=== PATIENT | male | born 1970 | race Caucasian/White ===

== ENCOUNTER 2025-05-27 17:26 | Emergency (ER) | payer OTHER, BC ==
[~2025-05-27] VITALS: Ht 177.8 cm; Wt 147.1 kg
--- NOTE | 2025-05-27 19:50 | ELECTROCARDIOGRAPH REPORT ---
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
[2025-05-27 20:00] VITALS: TEMP 98.2
[2025-05-27] MEDS ORDERED: iohexol 300mg/ml 100ml inj. ONE (20:03)
[2025-05-27 20:31] LABS: MEAN PLATELET VOLUME 8.0 FL (7.4-10.4); RED CELL DISTRIBUTION WIDTH 14.0 % (11.5-14.5)
[2025-05-27 20:56] LABS: CREATININE 2.97 MG/DL (0.60-1.10); LACTATE DEHYDROGENASE 461 U/L (85-227); PHOSPHORUS 3.3 MG/DL (2.3-4.5); PRO BRAIN NATRIURETIC PEPTIDE 63 PG/ML (0-125); TOTAL CARBON DIOXIDE 24.5 MMOL/L (24-32); eCRCL 29 ML/MIN; eGFR 22 ML/MIN
[2025-05-27] MEDS: normal saline 1000ML IV soln IVB ONE (21:00)
--- NOTE | 2025-05-27 21:15 | RADIOLOGY REPORT ---
CLINICAL HISTORY: STARKEY TECHNIQUE: Helical imaging carried out from skull base to vertex without intravenous contrast. This e xam was performed according to our departmental dose optimization program. Up-to-date CT equipment an d radiation dose reduction techniques are utilized as appropriate. CTDIVol: 70.29+ 0.14 mGy DLP: 1395.78 mGy-cm WID: COMPARISON: None FINDINGS: The ventricles and subarachnoid spaces are normal in size and configuration. There is no midline niurka ft or mass effect. The castano white matter interfaces are maintained. The basal cisterns are patent. Th ere is no evidence of acute intracranial hemorrhage or extra-axial fluid collection. The mastoid air cells and visualized paranasal sinuses are well-aerated aside from mild mucosal thickening of the rig ht maxillary sinus. IMPRESSION: 1. No acute intracranial abnormality.
--- NOTE | 2025-05-27 21:44 | RADIOLOGY REPORT ---
Procedure: CT CT CHEST ABDOMEN PELVIS 05/27/2025 08:50 PM Indication: pain, diarrhea, weightloss Comparison Study: None Technique: Axial images were obtained and reformatted in coronal and sagittal planes. All CT scans at this medical facility are performed using dose modulation techniques as appropriate to a performed e xam including the following: Automated exposure control was utilized; adjustment of the MA and/or KV according to patient size; and use of iterative reconstruction technique. CT Dose: CTDI volume is 29. 91 mGy. Dose-length product is 2283.82 mGy*cm FINDINGS: Chest: The thyroid gland is unremarkable. Partially visualized heart is normal in size. Trace pericardial effusion. Lipomatous hypertrophy of the intra-atrial septum. No significant mediastinal lymphadenopathy. 6 mm Left basilar solid nodule follow-up per Fleischner criteria is recommended. No pneumothorax, ple ural effusion or focal airspace consolidation. Soft tissues are unremarkable. No evidence of acute osseous abnormalities. Abdomen and pelvis: Mild hepatomegaly with hepatic steatosis. 1.6 x 1.2 cm nonspecific enhancing focus within the right h epatic lobe with additional 3 x 6.8 cm area of ill-defined enhancement within the liver. Calcified gr anulomas within the spleen. Otherwise, the spleen is unremarkable. Gallbladder, pancreas and adrenal glands unremarkable. 3 cm right renal lower pole cyst with left renal parapelvic cyst /pelviectasis. Otherwise, kidneys an d ureters unremarkable. Urinary bladder is decompressed and demonstrates mild wall thickening. Prost ate measures 3.5 x 5 x 4.1 cm. Stomach is unremarkable. Small bowel loops fluid-filled and nondistended. Appendix is unremarkable. S mall amount of fecal material within the colon. Descending colon and sigmoid diverticulosis without d iverticulitis. No evidence of intraperitoneal free air or free fluid. No evidence of aortic aneurysm or dissection. Mild atherosclerotic calcification of bilateral iliacs. No significant lymphadenopathy. Small fat containing bilateral inguinal hernia. Small to moderate fat containing umbilical hernia. So ft tissues are evidence of acute osseous abnormalities. Multilevel okom-sk-omtnpzhp degenerative addison ges of the thoracic and lumbar spine. unremarkable. Bridging osteophytes bilateral SI joints with scl erosis of the left and right SI joint. Sclerotic focus over the left femoral head which may represent a bone island /blastic lesion. IMPRESSION: No evidence of acute intrathoracic abnormalities. Urinary bladder is decompressed and demonstrates mild wall thickening which is most likely from inade quate distension. Correlation with urinalysis is recommended to exclude cystitis. Colonic diverticulosis without diverticulitis. Fluid-filled nondistended Proximal small bowel loops which may be seen enteritis. 1.6 x 1.2 cm nonspecific enhancing focus within the right hepatic lobe with additional 3 x 6.8 cm are a of ill-defined enhancement within the liver. Hepatic protocol see CT/MRI may be considered for furt her evaluation. Left renal parapelvic cyst/mild pelviectasis. Renal ultrasound is recommended for further evaluation. 6 mm Left basilar solid nodule follow-up per Fleischner criteria is recommended.
[2025-05-27 22:26] LABS: LEUKOCYTE ESTERASE ,URINE NEGATIVE (Neg); NITRITES, URINE NEGATIVE (Neg); OCCULT BLOOD,URINE NEGATIVE (Neg)
[2025-05-27 22:29] LABS: UA COLLECTION TYPE CLN CATCH MIDSTREAM
[2025-05-27 22:34] LABS: SQUAMOUS EPITHELIAL CELL,UR FEW /LPF (FEW)
[2025-05-27 22:35] LABS: CAL OXALATE CRYSTALS 2+ /HPF (NEGATIVE)
[2025-05-27 22:53] LABS: URINE AMPHETAMINE SCREEN NEGATIVE (Neg); URINE BARBITUATE SCREEN NEGATIVE (Neg); URINE BENZODIAZEPINES SCREEN NEGATIVE (Neg); URINE CANNABINOID SCREEN NEGATIVE (Neg); URINE COCAINE SCREEN NEGATIVE (Neg); URINE METHADONE SCREEN NEGATIVE (Neg); URINE OPIATE SCREEN NEGATIVE (Neg); URINE PHENCYCLIDINE SCREEN NEGATIVE (Neg)
--- NOTE | 2025-05-27 23:28 | Physician Documentation ---
History of Present Illness General Chief Complaint: See Chief Complaint Stated Complaint: NOT FEELING WELL Time Seen by MD: 19:34 Primary Medical Doctor: Dr. Caruso Mode of Arrival: POV History of Present Illness Initial Comments This is a 54-year-old male who presents for evaluation of a generalized malaise, generalized weakness, shortness of breath, diarrhea, abdominal discomfort. Now he also reports approximately resident online which is why 40-60 lb loss in the last 10 days. No palliating or aggravating factors. Did not attempt to treat his symptoms. Tested himself for COVID three days ago and it was negative. Medication Reconciliation Allergies: Coded Allergies: No Known Allergies (Unverified , 05/27/25) Past Medical History Past Medical History: No Pertinent History Past Surgical History: no surgical history Smoking: Non-Smoker Alcohol Use: None Drug Use: none Review of Systems ROS 10 point review of systems was performed and unless noted above in HPI is negative for acute process/complaint. Physical Exam Physical Exam Vital Signs: Temperature: 98.2, Source: Temporal, Heart Rate: 102, Respiratory Rate: 17, BP: 118/71, Pulse Oximetry: 97, Weight: 147.100 Oxygen Flow Rate: 0 Physical Exam GENERAL: Awake, alert, oriented, GCS 15, no apparent distress, non-toxic appearing, answers questions, follows commands appropriately. Rotund gentleman with a high BMI. HEENT: Atraumatic, normocephalic, pupils equal, extraocular muscles intact, sclerae anicteric, mucus membranes moist, oropharynx is clear, no stridor. NECK: supple, full active range of motion, trachea midline, no thyromegaly, no lymphadenopathy, no JVD. CARDIOVASCULAR: Slightly tachycardic and regular rate/rhythm, no murmurs/gallops/rubs, Pulses are 2+ in all extremities and symmetric. Capillary refill less than 2 seconds. PULMONARY: Nonlabored, good air movement ,no respiratory distress, speaking in full sentences, coarse breath sounds bilaterally, no wheezing, no ronchi, no rales, no accessory muscle use. GASTROINTESTINAL: Soft, non-tender, non-distended, normal active bowel sounds, no organomegaly, no pulsatile masses, no CVA tenderness. NEUROLOGIC: Lucid with normal mental status. Normal facial symmetry. Moves all extremities symmetrically and with purpose. No truncal ataxia. Speech is fluid without evidence of dysarthria or aphasia, no focal deficits appreciated. MUSCULOSKELETAL: There is full range of motion of all extremities. There is no joint pain or joint swelling or joint erythema. There is no muscle pain or tenderness or swelling. EXTREMITIES: warm, well-perfused, no cyanosis, no clubbing, no edema, no acute deformities. Skin: warm, dry, no rashes or lesions, no jaundice, no petechiae orpurpura. No ecchymosis. PSYCHIATRIC: Normal affect, normal insight, normal concentration. Focused exam: [] Progress Results/Orders Results/Orders Orders - PHONG GODINEZ DO Monitor (05/27/25 19:35) Saline Lock (05/27/25 19:35) Ct Head (05/27/25 20:50) Ct Chest Abdomen Pelvis (05/27/25 20:50) Cult Urine + [address] Ct (05/27/25 22:35) Completed Orders - PHONG GODINEZ DO Drug Screen, Urine (05/27/25 19:35) Electrocardiogram (05/27/25 19:35) Cbc/Diff (05/27/25 19:35) CK (05/27/25 19:35) ESR (05/27/25 19:35) Lipase (05/27/25 19:35) LDH (05/27/25 19:35) C-Reactive Protein (05/27/25 19:35) PHOS (05/27/25 19:35) PBNP (05/27/25 19:35) MG (05/27/25 19:35) TSH (05/27/25 19:35) Free T4 (05/27/25 19:35) Normal Saline 1000ml (0.9% Sodium Chlori (05/27/25 19:35) Ct Head (05/27/25 20:50) CMP (05/27/25 19:35) Hs Troponin I W Calculations (05/27/25 19:35) Hs Troponin I W Calculations (05/27/25 21:35) Ct Chest Abdomen Pelvis (05/27/25 20:50) Iohexol 300mg/Ml 100ml Inj. (Omnipaque-3 (05/27/25 20:03) Ua W/Microscopic, Cult If Ind (05/27/25 22:07) Medications Received in ER Medications (Trade) Dose Ordered Sig/Lizeth Route PRN Reason Start Time Stop Time Status Last Admin Dose Admin (0.9% sodium chloride (NS) 1000ml IV soln) 1,000 ml ONCE ONCE IVB 05/27/25 19:35 05/27/25 19:43 DC 05/27/25 21:00 1,000 ML Vital Signs 05/27/25 05/27/25 05/27/25 05/27/25 17:44 20:00 20:08 21:00 Temp 97.7 98.2 Pulse 118 127 110 Resp 16 17 B/P (MAP) 104/60 102/67 (79) 106/64 (78) Pulse Ox 98 96 94 O2 Flow Rate 0 05/27/25 05/27/25 22:00 22:55 Pulse 106 102 B/P (MAP) 110/65 (80) 118/71 (87) Pulse Ox 96 97 Laboratory Tests Test 05/27/25 17:52 05/27/25 20:26 05/27/25 21:51 05/27/25 22:07 Glucometer 143 H White Blood Count 8.9 Red Blood Count 5.48 Hemoglobin 15.8 Hematocrit 45.7 Mean Corpuscular Volume 83.4 Mean Corpuscular Hemoglobin 28.7 Mean Corpuscular Hemoglobin Concent 34.5 Red Cell Distribution Width 14.0 Platelet Count 199 Mean Platelet Volume 8.0 Neutrophils (%) (Auto) 51.6 Lymphocytes (%) (Auto) 38.6 Monocytes (%) (Auto) 8.3 Eosinophils (%) (Auto) 0.2 Basophils (%) (Auto) 1.3 H Neutrophils # (Auto) 4.6 Lymphocytes # (Auto) 3.4 Monocytes # (Auto) 0.7 Eosinophils # (Auto) 0.0 Basophils # (Auto) 0.1 CBC Comment Erythrocyte Sedimentation Rate 25 H Sodium Level 132 L Potassium Level 4.0 Chloride Level 95 L Carbon Dioxide Level 24.5 Anion Gap 13 Blood Urea Nitrogen 45 H Creatinine 2.97 H Estimated GFR/1.73 m2 22 BUN/Creatinine Ratio 15.2 Glucose Level 159 H Calcium Level 9.0 Phosphorus Level 3.3 Magnesium Level 2.1 Total Bilirubin 1.2 H Aspartate Amino Transf (AST/SGOT) 68 H Alanine Aminotransferase (ALT/SGPT) 108 H Alkaline Phosphatase 67 Lactate Dehydrogenase 461 H Total Creatine Kinase 237 Troponin I High Sensitivity 7 6 C-Reactive Protein 4.74 H Pro-B-Type Natriuretic Peptide 63 Total Protein 8.3 H Albumin 3.9 Globulin 4.4 H Albumin/Globulin Ratio 0.9 L Lipase 101 H Thyroid Stimulating Hormone (TSH) 1.15 Free Thyroxine 1.07 Chemistry Comments Troponin I High Sens Percent Delta 14 Troponin I Hi Sens Absolute Change -1 Urine Specimen Description Cln catch midstream Urine Color Yellow Urine Clarity Clear Urine pH 5.5 Urine Specific [place] 1.010 Urine Protein 30 H Urine Glucose (UA) Negative Urine Ketones Negative Urine Occult Blood Negative Urine Nitrite Negative Urine Bilirubin Negative Urine Urobilinogen 0.2 Urine Leukocyte Esterase Negative Urine RBC 0-2 Urine WBC 5-10 H Urine Squamous Epithelial Cells Few Urine Calcium Oxalate Crystals 2+ Urine Bacteria 3+ Urine Culture Indicated Indicated Volume Urine Centrifuged 10 ml Urine Comment Urine Opiates Screen Negative Urine Methadone Screen Negative Urine Fentanyl Screen Negative Urine Barbiturates Screen Negative Urine Phencyclidine Screen Negative Urine Amphetamines Screen Negative Urine Benzodiazepines Screen Negative Urine Cocaine Screen Negative Urine Cannabinoids Screen Negative Drug Screen Comment EKG/XRAY/CT/US/VASC/MRI EKG : Additional Comment EKG was obtained and interpreted by myself shows sinus tachycardic, rate of 125, normal SC interval, wide QRS with a right bundle, no QT prolongation, normal axis, no STEMI. Medical Decision Making Findings Facility Status: ED Holds, [facility] process The plan was discussed with the patient, who demonstrates clear understanding of the plan and is in agreement with the plan unless otherwise noted in the chart. All questions have been answered, all concerns were addressed unless otherwise documented. I was available throughout their ED stay for frequent reassessment and questions. Differential Diagnoses (considered and possible or likely): [COVID, influenza, RSV, viral infection with the top of the viruses, viral gastroenteritis, less likely acute intra-abdominal process requiring surgical intervention. Given his nearly catastrophic weight loss of 40-60 lb and 10 days there is definite concern for cancer. Given his complaint of highly sensitive nipples without I am concerned about a pituitary disease. Intracranial neoplasm had also been considered.] ??Differential Diagnoses (considered and unlikely, not requiring evaluation currently): [No evidence of lateralizing signs to suspect a stroke. No evidence of trauma.] MDM Data Please see HPI for the following: Independent Historians and external Records Review. Historian: [Patient] Independent Historians: ?[ and daughter] Medication Management: [Reviewed medication list] Social History and determinants: [Reviewed] Please see the body of the note for the following: Any independent interpretations of ECG, imaging studies. All vitals signs/haemodynamics, ordered tests were independently reviewed and interpreted by myself. Nursing triage complaint and vitals reviewed, additional nursing notes were reviewed as available and I agree unless otherwise noted or documented in contradiction in the chart Vital Signs: Independently reviewed Labs: Independently interpreted Imaging: Independently interpreted Old Medical Records: Independently reviewed, see HPI for relevant summary and information Pulse Oximetry: [97%] interpreted as [normal on room air] by me [Filling Hauler: Tachycardic Rate, Regular rhythm, no ectopy, sinus tachycardia. reviewed and interpreted by me] Additionally notably showing: [Hemodynamics reviewed. He is tachycardic, improved with fluids. No evidence of hypotension respiratory distress. CBC normal ESR is elevated minimally at 25 . Chemistry is positive for new onset acute kidney injury with a creatinine of 2.97. Transaminitis and viral pattern noted. LDH is slightly elevated. CRP is elevated. Lipase is also elevated. Thyroid studies are normal. Initial and repeat troponins are negative. Toxicology is negative for drugs of abuse. UA is questionably positive for UTI. Head CT was obtained showing no acute intracranial abnormality. CT of the chest, abdomen and pelvis showed 6 mm left lung base nodule. It that will require follow-up. He has nonspecific enhancing foci in the liver. Renal cyst noted. No acute intra-abdominal process.] Tests considered but not ordered include: [Ultrasound of the liver versus MRI of the liver to define the areas of hyper enhancement can be done on the inpatient basis.] Social Determinants of Health Impact: Patient was evaluated in [facility] [place] to healthcare due to below par ratio of patient to medical providers. [] Comorbid Conditions Impacting Present Evaluation and Care/Treatment: [None reported with the patient, he does not see doctors.] Management Discussions with other Healthcare Providers: [Hospitalist regarding admission] Treatment and Disposition Medication Management (Given or considered): [Fluids]. See EMR for details Consideration for Hospitalization/Escalation/Deescalation of Care: Admission for observation has been considered, for further workup of his new onset acute kidney injury. ?ED Course:?[No clinical deterioration] ?Shared decision making:?[] Code status:?FULL Please see the full Electronic Medical Record for full details of nursing documentation, medications list, other records of complete past medical history and conditions, vital signs, laboratory studies, and any radiologic study interpretations by radiologists. Portions of this note were completed using [employer] dictation software and as a result there may exist minor errors in spelling. I have reviewed elements of past family and social history and agree as included in note. Departure Disposition: 09 ADMITTED INPATIENT Impression: Primary Impression: Acute kidney injury Additional Impressions: Malaise Liver lesion Inappropriate sinus tachycardia Right bundle branch block Condition: Improved Referrals: NO PRIMARY CARE PROVIDER (PCP) Education Educated: Patient, Family Educated regarding: diagnosis, treatment, prognosis, need for follow up Signature Scribe Signature: No scribe Attestation: This note accurately reflects clinical decisions, work performed by myself, DO GRETCHEN Bowers NICHOLAS M DO May 27, 2025 23:28
[2025-05-27] MEDS ORDERED: AMOX-117 PO (23:45)
[2025-05-27] MEDS: CefTRIAXone/D5W-Rocephin 1gm 50 ML IV ONE (23:51)
[2025-05-28 00:07] VITALS: BP 147/97; PULSE 103; RESP 17; O2SAT 99
[2025-05-29] MEDS ORDERED: OLME-31 PO (15:16)
[2025-05-29] MEDS ORDERED: TIRZ5PEN (15:16)
[2025-05-29] MEDS ORDERED: METF-1203 PO (15:16)
== END 2025-05-28 00:18 | disposition home or self-care (01) ==
LOC: ER 17:27
DX: N17.9 Acute kidney failure, unspecified (principal); R51.9 Headache, unspecified; R53.81 Other malaise; K76.9 Liver disease, unspecified; I47.11 Inappropriate sinus tachycardia, so stated; I45.10 Unspecified right bundle-branch block; N39.0 Urinary tract infection, site not specified
CPT/HCPCS: 36415; 70450; 71270; 74178; 80053; 80305; 81001; 82550; 82948; 83615; 83690; 83735; 83880; 84100; 84439; 84443; 84484; 85025; 85651; 86140; 87088; 93005; 96361; 96365; 99285; J0696; J7030; Q9967

== ENCOUNTER 2025-05-29 10:15 | Inpatient (IN) | payer OTHER, BC ==
[~2025-05-29] VITALS: Ht 180.3 cm; Wt 160.8 kg
[~2025-05-29 10:15] MED LIST: AMOX-117 PO
--- NOTE | 2025-05-29 10:45 | ELECTROCARDIOGRAPH REPORT ---
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
--- NOTE | 2025-05-29 10:57 | RADIOLOGY REPORT ---
DI CHEST,SINGLE VIEW, HISTORY: CP COMPARISON: CT CT CHEST ABDOMEN PELVIS on DOS: 05/27/[address] CHEST ABDOMEN PELVIS on DOS: 05/27/25 TECHNICAL DATA: 1 view of the chest was obtained. FINDINGS: Lines and tubes: None Cardiomediastinal silhouette: normal Pulmonary vasculature: normal Lung expansion: normal Lung airspace: normal Lung interstitium: normal Pleura: normal Pneumothorax: no Bones: Unremarkable Other: no IMPRESSION: No acute intrathoracic abnormality.
[2025-05-29 11:01] LABS: MEAN PLATELET VOLUME 7.9 FL (7.4-10.4)
[2025-05-29 11:03] LABS: RED CELL DISTRIBUTION WIDTH 14.6 % (11.5-14.5)
[2025-05-29 11:17] LABS: CREATININE 3.85 MG/DL (0.60-1.10); TOTAL CARBON DIOXIDE 20.6 MMOL/L (24-32); eCRCL 23 ML/MIN; eGFR 16 ML/MIN
[2025-05-29 11:29] LABS: PRO BRAIN NATRIURETIC PEPTIDE 180 PG/ML (0-125)
[2025-05-29 13:06] LABS: EOSINOPHILS % (MANUAL) 2.0 % (0-6); MONOCYTES % (MANUAL) 17.0 % (2-12); NEUTROPHILS % (MANUAL) 23.0 % (42-75)
[2025-05-29 13:08] LABS: PLATELET ESTIMATE NORMAL
[2025-05-29 13:09] LABS: LYMPHOCYTES % (MANUAL) 58.0 % (21-51)
--- NOTE | 2025-05-29 13:37 | Physician Documentation ---
History of Present Illness General Chief Complaint: Abdominal Pain Stated Complaint: MULTIPLE MED COMPLAINTS Time Seen by MD: 13:15 Primary Medical Doctor: Dr. Caruso Mode of Arrival: POV History of Present Illness Initial Comments The patient is a 54-year-old male with a history of type 2 diabetes and hypertension who has been feeling generally unwell for the past 10 days. He was here two days ago at which time his creatinine was 2.97. He eloped from the department. Today he returns with similar symptoms and his creatinine is 3.85. He denies the use of illicit drugs and alcohol. Medication Reconciliation Allergies: Coded Allergies: No Known Allergies (Unverified , 05/29/25) Scheduled Amox Tr/Potassium Clavulanate (Augmentin 875-125 Tablet), 1 TAB PO Q12H Past Medical History Past Medical History: No Pertinent History Past Surgical History: no surgical history Smoking: Non-Smoker Alcohol Use: None Drug Use: none Review of Systems ROS Constitutional: Malaise HEENT: Denies hearing loss, sinus pressure or visual changes. Respiratory: Denies cough, shortness of breath or wheezing. Cardiovascular: Denies chest pain, pain while walking (claudication), edema or palpitations. Gastrointestinal: Denies abdominal pain, blood in stool, constipation, diarrhea, heartburn, loss of appetite, nausea or vomiting. Genitourinary: Denies painful urination (dysuria), excessive amount of urine (polyuria) or urinary frequency. Metabolic/Endocrine: Denies cold intolerance, heat intolerance, excessive thir st (polydipsia) or excessive hunger (polyphagia). Neurological: Denies dizziness, extremity numbness, extremity weakness, hea daches, seizures or tremors. Psychiatric: Denies anxiety or depression. Integumentary: Denies breast discharge, breast lump, hives, mole change(s), rash or skin lesion. Musculoskeletal: Denies back pain, joint pain, joint swelling or neck pain. Hematologic: Denies easily bleeding, easily bruises, lymphedema or issues with blood clots. Immunologic: Denies food allergies or seasonal allergies. Physical Exam Physical Exam Vital Signs: Temperature: 97.9, Source: Temporal, Heart Rate: 102, Respiratory Rate: 16, BP: 116/67, Pulse Oximetry: 97, Weight: 147.730 Physical Exam Physical Exam Vitals and nursing note reviewed. Constitutional: General: Patient is awake, alert, oriented x 4 in no acute distress and well appearing. Speech is clear and lucid. Appearance: Morbidly obese. Patient is not ill-appearing, toxic-appearing or diaphoretic. HENT: Head: Normocephalic and atraumatic. Mouth/Throat: Mouth: Mucous membranes are moist. Pharynx: Oropharynx is clear. Eyes: General: No scleral icterus. Extraocular Movements: Extraocular movements intact. Pupils: Pupils are equal, round, and reactive to light. Neck: Supple, no Kernig or Brudzinski sign. Cardiovascular: Rate and Rhythm: Normal rate and regular rhythm. Heart sounds: No murmur heard. Pulmonary: Effort: No respiratory distress. Breath sounds: No wheezing, rhonchi or rales. Abdominal: General: There is no distension. Palpations: There is no fluid wave, hepatomegaly or mass. Tenderness: There is no abdominal tenderness. There is no guarding. Musculoskeletal: General: No swelling or deformity. Skin: Coloration: Skin is not jaundiced. Findings: No erythema or rash. Neurological: Mental Status: Patient is alert. Progress Results/Orders Results/Orders Orders - ERIC KELLEY MD Normal Saline 1000ml (0.9% Sodium Chlori (05/29/25 13:35) Normal Saline 1000ml (0.9% Sodium Chlori (05/29/25 13:35) Culture Blood (05/29/25 13:32) Lacticsepsis (05/29/25 13:32) Ethanol (05/29/25 13:36) Drug Screen, Urine (05/29/25 13:36) Page Hospitalist (05/29/25 13:53) Completed Orders - ERIC KELLEY MD Ceftriaxone 2gm/D5w 50ml Bag (Rocephin 2 (05/29/25 13:35) Vital Signs 05/29/25 05/29/25 10:26 11:50 Temp 97.9 Pulse 102 Resp 18 16 B/P (MAP) 116/67 Pulse Ox 97 Laboratory Tests Test 05/29/25 10:39 05/29/25 12:20 05/29/25 13:53 White Blood Count 9.1 Red Blood Count 4.84 Hemoglobin 13.9 L Hematocrit 40.4 L Mean Corpuscular Volume 83.5 Mean Corpuscular Hemoglobin 28.7 Mean Corpuscular Hemoglobin Concent 34.4 Red Cell Distribution Width 14.6 H Platelet Count 188 Mean Platelet Volume 7.9 Neutrophils (%) (Auto) 27.0 L Lymphocytes (%) (Auto) 64.1 H Monocytes (%) (Auto) 7.4 Eosinophils (%) (Auto) 0.5 Basophils (%) (Auto) 1.0 Neutrophils # (Auto) 2.5 Lymphocytes # (Auto) 5.9 H Monocytes # (Auto) 0.7 Eosinophils # (Auto) 0.0 Basophils # (Auto) 0.1 CBC Comment Differential Total Cells Counted 100 Neutrophils % (Manual) 23.0 L Lymphocytes % (Manual) 58.0 H Monocytes % (Manual) 17.0 H Eosinophils % (Manual) 2.0 Platelet Estimate Normal Red Blood Cell Morphology Perf Basophilic Stippling Stomatocytes Few Sodium Level 130 L Potassium Level 3.9 Chloride Level 96 L Carbon Dioxide Level 20.6 L Anion Gap 13 Blood Urea Nitrogen 48 H Creatinine 3.85 H Estimated GFR/1.73 m2 16 BUN/Creatinine Ratio 12.5 Glucose Level 106 H Calcium Level 8.3 L Total Bilirubin 1.0 Aspartate Amino Transf (AST/SGOT) 59 H Alanine Aminotransferase (ALT/SGPT) 87 H Alkaline Phosphatase 53 Troponin I High Sensitivity 8 7 Troponin I High Sens Percent Delta 33 12 Troponin I Hi Sens Absolute Change 2 -1 Pro-B-Type Natriuretic Peptide 180 H Total Protein 7.1 Albumin 3.3 L Globulin 3.8 Albumin/Globulin Ratio 0.9 L Chemistry Comments Medical Decision Making Findings This patient's creatinine today is 3.85 and it was 2.972 days ago. He has no prior documented history of renal problems. He also has a urinary tract infection. He will require admission EKG medically necessary in the evaluation of ISAAC and interpreted by me at the time of patient evaluation. Rhythm is sinus rhythm with a rate of 96, right bundle branch block. Impression: Abnormal EKG. ECG reading does not show any acute signs of obvious ischemia. No evidence of A- V block. No short OK, delta waves, or wide QRS concerning for [id number]. No long QT events on my read. I do not see evidence of Brugada with ST elevations in V1 through V3. No epsilon wave noted. No low voltage suggestive of pericardial effusion. No right ventricular strain pattern. Departure Disposition: ADMITTED INPATIENT Admitted to Inpatient Unit: to hospitalist Impression: Primary Impression: Acute kidney injury Additional Impression: Acute urinary tract infection Condition: Fair Referrals: NO PRIMARY CARE PROVIDER (PCP) Signature Scribe Signature: . Attestation: . ERIC KELLEY MD May 29, 2025 13:37
[2025-05-29] MEDS: normal saline 1000ml 1,000 ML IV ONE ×2 (14:16→14:17)
[2025-05-29] MEDS: CefTRIAXone 2gm/D5W 50ml BAG 50 ML IV ONE (14:20)
[2025-05-29] MEDS ORDERED: METF-1203 PO (15:16)
[2025-05-29] MEDS ORDERED: TIRZ5PEN (15:16)
[2025-05-29] MEDS ORDERED: OLME-31 PO (15:16)
[2025-05-29 16:05] VITALS: RESP 18; O2SAT 100
[2025-05-29 16:14] LABS: URINE AMPHETAMINE SCREEN NEGATIVE (Neg); URINE BARBITUATE SCREEN NEGATIVE (Neg); URINE BENZODIAZEPINES SCREEN NEGATIVE (Neg); URINE CANNABINOID SCREEN NEGATIVE (Neg); URINE COCAINE SCREEN NEGATIVE (Neg); URINE METHADONE SCREEN NEGATIVE (Neg); URINE OPIATE SCREEN NEGATIVE (Neg); URINE PHENCYCLIDINE SCREEN NEGATIVE (Neg)
[2025-05-29] MEDS ORDERED: magnesium hydroxide 30ml (MOM) UD suspension PO PRN (16:15)
[2025-05-29] MEDS ORDERED: mag hydrox/Alum hydrox/simeth 30ml oral suspension PO PRN (16:15)
[2025-05-29] MEDS: PERFLUTREN PROTEIN-A MICROSPHR (Optison) 0.22 MG/ML 3ML VIAL IV ONE (16:15)
[2025-05-29] MEDS ORDERED: magnesium sulf-water 4G/100mL 100 ML IV PRN (16:15)
[2025-05-29] MEDS ORDERED: potassium Cl 40MEQ/1/2NS 520ml 520 ML IV PRN (16:15)
[2025-05-29] MEDS ORDERED: magnesium sulf-water 2g/50mL 50 ML IV PRN (16:15)
[2025-05-29] MEDS ORDERED: potassium Cl 20 mEq SR tablet PO PRN ×2 (16:15)
[2025-05-29] MEDS ORDERED: ondansetron/PF 4mg/2ml inj IV PRN (16:15)
[2025-05-29] MEDS ORDERED: magnesium Cl slow-release 64mg tablet PO PRN (16:15)
[2025-05-29 16:16] VITALS: BP 114/76; PULSE 86; RESP 16; TEMP 97.5; O2SAT 100
[2025-05-29] MEDS: normal saline 1000ml 1,000 ML IV SCH (16:32)
[2025-05-29 18:00] VITALS: BP 104/58; PULSE 85; RESP 15; TEMP 97.2; O2SAT 95
--- NOTE | 2025-05-29 19:02 | HISTORY AND PHYSICAL-Residence ---
History & Physical Providers to Resident Creating Document: WILD PEARCE, BOOKER ~ History of Present Illness Primary Medical Doctor: Dr. Caruso Reason for Admit\Complaint: Weakness History of Present Illness A 54 year-old male with a past medical history of type 2 diabetes mellitus, hypertension, and colitis presented to the ED with complaints of nausea, vomiting, diarrhea, profound fatigue, dizziness and weight loss. He reports the onset of nausea, vomiting, and watery diarrhea approximately 10 days prior to admission after he returned back from his trip to [place] where he stayed at [facility]. The vomiting lasted about three days, consisting of food contents only, without hematemesis or coffee-ground material. He denies hematochezia, melena, or foul-smelling stools. The diarrhea has been watery in consistency, with no associated blood. He also describes progressive fatigue, excessive sleepiness, dizziness, and unintentional weight loss of nearly 40 pounds over the past two weeks. On 05/19, he initially presented to the emergency department with similar complaints. Labs at that time revealed elevated AST/ALT and an elevated creatinine of 2.93. A CT abdomen was performed, which showed a 1.6 x 1.2 cm nonspecific enhancing focus within the right hepatic lobe with additional 3 x 6.8 cm area of ill-defined enhancement within the liver. Despite these abnormalities, the patient left against medical advice due to work obligations. Since then, his symptoms persisted, with ongoing diarrhea and poor oral intake. He reports that he has not been able to eat since 05/19, with minimal tolerance of fluids. Last night, he noticed transient numbness and tingling of his right foot while driving, as well as paresthesia of his right hand. He denies abdominal pain but notes intermittent abdominal pressure and discomfort. He also endorses episodes of diaphoresis and hot flashes. He has no chest pain, palpitations, cough, shortness of breath, or dysuria. 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 His medications include metformin, olmesartan, and hydrochlorothiazide. He was diagnosed with diabetes and hypertension approximately three years ago, with recent medication titration in January. He denies recent alcohol or illicit drug use. Allergies: Coded Allergies: No Known Allergies (Unverified , 05/29/25) Home Medications Home Medications Active Augmentin 875-125 Tablet (Amoxicillin/Clavulanate Potassium) 1 Each Tablet 1 Tab PO Q12H 10 Days Reported Olmesartan-Hctz 40-25 mg Tab (Olmesartan/Hydrochlorothiazide) 40 Mg-25 Mg Tablet 1 Tab PO DAILY Mounjaro (Tirzepatide) 5 Mg/0.5 Ml Pen.injctr Metformin HCl 500 Mg Tablet 2 Tab PO BID Past Medical History Past Medical History Hypotension Diabetes mellitus Obesity Past Surgical History Surgical History Comment None Past Social History Social History Comment Smoking: Chews tobacco Denied alcohol illicit use of drugs Lives with and daughter Ambulates independently Smoking: Non-Smoker Alcohol Use: None Drug Use: None ROS ROS Constitutional: No fever, chills, dizziness, weight gain or loss Eyes: No pain, erythema, discharge, blurring of vision ENT: No sore throat, epistaxis, tinnitus Cardiovascular: No Shortness of breath. Chest pressure, chest discomfort, palpitations, syncope, lower extremity edema, paroxysmal nocturnal dyspnea Respiratory: Shortness of breath and cough present, No hemoptysis Gastrointestinal: Normal appetite. Reports nausea, vomiting, diarrhea; no constipation, hematemesis, abdominal pain, bloating, melena or fresh blood Musculoskeletal: No edema. Integumentary: No change in skin, hair, nails. No swelling, bruising, abrasions Neurologic: No headache, neck pain, numbness or tingling of the extremities, weakness Psychiatric: No delusions, depression, loss of interest in normal activity or change in sleep pattern, hallucinations, suicidal ideations Endocrine: No fatigue, weakness, polydipsia, polyuria, change in appetite, heat or cold intolerance, sweating, dry skin Hematological: No bleeding, petechiae, bruising Allergies: No asthma or urticaria Exam Vitals: Vital Signs Date Time Temp Pulse Resp B/P (MAP) Pulse Ox O2 Delivery O2 Flow Rate FiO2 05/29/25 16:16 97.5 86 16 114/76 (89) 100 Room Air General: Awake , alert, and oriented x4, resting comfortably in the bed, in no acute distress HEENT: Atraumatic, normocephalic, EOMI, anicteric sclera ; pink conjunctiva Neck: Trachea midline. Supple, full range of motion, no JVD Cardiac: Regular rhythm, regular rate with no murmurs all over the precordium. Respiratory: Equal breath sounds bilaterally, no tachypnea, no wheezing ,rub or rales, Chest wall is symmetric and without deformity. Gastrointestinal: Abdomen symmetric, obese, soft, non-tender, normal bowel sounds x4 quadrant, normoactive Musculoskeletal: No pedal edema, no cyanosis Neurological: Speech is clear, alert, and oriented x 4. No motor or sensory deficit, deep tendon reflexes normal, cerebellar intact. Cranial nerves II-XII intact. Skin: Warm and dry Diagnostic Data Last Recorded Lab Results: 05/29/25 1039 05/29/25 1039 Advance Care Planning Advanced Care plannin - 30 Minutes Additional Plan 1. Nausea, Vomiting, and Watery Diarrhea (10 days) with Severe Weight Loss (40 lbs/2 weeks) Likely multifactorial: infectious gastroenteritis vs colitis flare vs metabolic disturbance (renal/hepatic dysfunction) Dehydration evident with poor oral intake, fatigue, dizziness. Plan: Stool studies: C. diff, stool leukocytes, stool O&P Blood cultures ordered IV fluid resuscitation with electrolyte monitoring NS at 100 cc/hour Antiemetics (ondansetron) Clear liquid diet, advance as tolerated 2. Acute Kidney Injury (Cr 2.93 on 05/19, presumed prerenal from dehydration vs progression of CKD from HTN/DM) On olmesartan and hydrochlorothiazide (both can worsen renal function in hypovolemia) Plan: Creatinine today: 3.85, continue monitoring CMP Hold nephrotoxic meds (metformin, HCTZ, olmesartan) Urine lytes ordered: Urine sodium, urine creatinine, urine osmolality, serum osmolality, urine Urea, , urine potassium Trend renal function and electrolytes q12h IV fluids with close sodium monitoring Ordered renal ultrasound 3. Transaminitis with Possible enhancing focus in the right hepatic lobe History of alcohol not reported, but concern for underlying hepatic disease. Plan: AST and ALT have trended down from the previous admission to [address] abdomen/pelvis 1.6 x 1.2 cm nonspecific enhancing focus within the right hepatic lobe with additional 3 x 6.8 cm area of ill-defined enhancement within the liver. Hepatitis viral panel ordered Patient will benefit with Abdominal ultrasound with liver Doppler MRI liver for further characterization of lesion outpatient Avoid hepatotoxic medications. 4. Unintentional Weight Loss & Constitutional Symptoms (40 lbs/2 weeks, diaphoresis, hot flashes) Red flag for malignancy, systemic infection, or metabolic/endocrine disorder Plan: Chest CT abdomen showed: Colonic diverticulosis without diverticulitis. Fluid- filled nondistended Proximal small bowel loops which may be seen enteritis.1.6 x 1.2 cm nonspecific enhancing focus within the right hepatic lobe with additional 3 x 6.8 cm area of ill-defined enhancement within the liver. Hepatic protocol see CT/MRI may be considered for further evaluation.Left renal parapelvic cyst/mild pelviectasis. Renal ultrasound is recommended for further evaluation.6 mm Left basilar solid nodule follow-up per Fleischner criteria is recommended. Ordered alpha-fetoprotein 5.Paresthesias (right foot, right hand) Electrolytes: Sodium 130, potassium 3.[address] head to rule out CVA given vascular risk factors (HTN, DM) Plan: Magnesium phosphorus ordered Calcium levels 8.3, corrected calcium 7.9 B12, folate, TSH ordered Neuro checks; consider MRI brain if focal deficits persist 6. Hyponatremia (possible hypotonic hypovolemic hyponatremia) Sodium levels 130 today Probably secondary to vomiting and diarrheal episodes in the past 10 days Also could be secondary to nutritional deficiencies, as patient had poor oral intake over the last few days Plan Continue NS at 100 cc/hour Ordered urine sodium, urine osmolality and serum osmolality Continue monitoring sodium levels with BMP daily 7. Chronic Conditions Diabetes Mellitus: Hold metformin until renal function stabilizes; monitor glucose with insulin sliding scale. Hypertension: Hold olmesartan and HCTZ until ISAAC improves; ordered amlodipine 5 mg p.o. daily Morbid Obesity: BMI 45.4: Patient will benefit from gastric surgery, outpatient management DVT prophylaxis with SQ heparin. GI prophylaxis Protonix Code Status: Full code Carb controlled diet, please transition to clear liquid diet with patient is unable to tolerate Wild Pearce MD Internal Medicine Resident, PGY-2 Date of Service: May 29, 2025 Billing Provider: VICTORINA CISNEROS MD Common Visit Codes: 32943-SXTSITS INP/OBS CARE (HIGH) Secondary Visit Codes: 96247-FKHVJRKT CARE PLAN 30 MINUTES WILD PEARCE, BOOKER May 29, 2025 19:02 VICTORINA CISNEROS MD May 31, 2025 06:14
--- NOTE | 2025-05-29 19:07 | CARDIOLOGY REPORT ---
APPROVED REPORT EXAM: Comprehensive 2D, Doppler, and color-flow Echocardiogram. Patient Location: 353 A Blood Pressure: 114/76 mmHg Heart Rate: 81 bpm Rhythm: SINUS Indications SHORTNESS OF BREATH ELEVATED PROBNP (180) Closer On: none Previous echo: none 2D Dimensions RVDd 4.9 cm IVSd 1.0 (0.7-1.1cm) LVDd 5.2 cm PWd 1.2 (0.7-1.1cm) IVSs 1.2 (0.8-1.2cm) LVDs 3.3 (2.5-4.0cm) PWs 1.7 (0.8-1.2cm) LVOT Diameter 2.16 (1.8-2.4cm) LVEF(%) 65.3 (>50%) FS (%) 36.1 % SV 83.9 ml CO 7.0 L/min M-Mode Dimensions Left Atrium(MM) 5.03 (2.5-4.0cm) Aortic Root 3.34 (2.2-3.7cm) Aortic Cusp Exc 1.78 (1.5-2.0cm) MV EPSS 0.9 (<0.5cm) Aortic Valve AoV Peak Markell. 133.8 cm/s AoV VTI 20.9 cm AO Peak GR. 7.2 mmHg AO Mean GR. 4 mmHg LVOT VTI 17.09 cm LVOT Peak Markell. 93.3 cm/s АНДРЕЙ(VTI)/BSA 3.00 cm2/m2 АНДРЕЙ (VTI) 3.00 cm2 Mitral Valve MV E Velocity 69.4 cm/s MV Peak Gr. 3 mmHg MV DECEL TIME 248 ms MV A Velocity 80.1 cm/s MV PHT 68 ms E/A Ratio 0.9 MVA (PHT) 3.24 cm2 MV VMax85.6 cm/s TDI Medial E' P. V 8.79 cm/s E/Medial E' 7.9 Pulmonary Vein S1 Velocity 38.7 cm/s D2 Velocity 31.6 cm/s PVa Bwwjidfv19.7 cm/s PVa [id number] msec LEFT VENTRICLE Normal LV size and wall thickness. Overall systolic function is normal. LVEF is 60-65%. RIGHT VENTRICLE RV is moderately dilated with normal systolic function. ATRIA LA size is normal. AORTIC VALVE Trileaflet AV appears mildly sclerotic without stenosis or insufficiency. MITRAL VALVE Mild MV annular calcification without stenosis. Trace regurgitation. TRICUSPID VALVE TV appears structurally normal with trace regurgitation. PULMONIC VALVE Normal PV without stenosis, physiologic insufficiency. GREAT VESSELS The aortic root is normal in size. PERICARDIUM Normal pericardium. No effusion. Other Information Study Quality: Adequate Conclusion Normal LV size and wall thickness. Overall systolic function is normal. LVEF is 60-65%. RV is moderately dilated with normal systolic function. LA size is normal. Trileaflet AV appears mildly sclerotic without stenosis or insufficiency. Mild MV annular calcification without stenosis. Trace regurgitation. TV appears structurally normal with trace regurgitation. Normal pericardium. No effusion.
[2025-05-29 20:00] VITALS: BP_SYST 119; BP_SYST 126; BP_SYST 129; BP_DIAS 67; BP_DIAS 72; BP_DIAS 74; PULSE 109; PULSE 89; PULSE 95; RESP 18; O2SAT 100
[2025-05-29] MEDS: docusate sod 100mg capsule PO SCH (20:00)
[2025-05-29] MEDS: K and/or MAG REPLACEMENT MC SCH (20:00)
[2025-05-29 20:13] LABS: OSMOLALITY 290.0 MOSM/K (280-300)
--- NOTE | 2025-05-29 20:26 | RADIOLOGY REPORT ---
CLINICAL HISTORY: To rule out CVA TECHNIQUE: Helical scanning was performed of the head from the skull base to the vertex. Multiplanar reconstructions were performed. This exam was performed according to our departmental dose optimizat ion program. Up-to-date CT equipment and radiation dose reduction techniques are utilized as appropri ate. CTDI 76.8 DLP 1598 COMPARISON: CT CT HEAD on DOS: 05/27/25 FINDINGS: There is no evidence for acute intracranial hemorrhage, acute ischemic changes, mass, mass effect, or extra-axial fluid collection. There is no hydrocephalus or midline shift. There is no effacement of the cerebral sulci and basal subarachnoid cisterns. The castano-white matter differentiation is well nicole ntained. The imaged paranasal sinuses are demonstrate minimal scattered mucoperiosteal thickening. IMPRESSION: NO ACUTE INTRACRANIAL ABNORMALITY SEEN.
[2025-05-29] MEDS: heparin, porcine 5000 units/ml vial SQ SCH (20:49)
[2025-05-29 21:52] LABS: OCCULT BLOOD STOOL NEGATIVE (Neg)
[2025-05-29 22:00] VITALS: BP 98/64; PULSE 82; RESP 14; TEMP 99.4; O2SAT 94
[2025-05-29 23:00] VITALS: BP 98/64; PULSE 82; RESP 14; TEMP 99.4; O2SAT 94
[2025-05-30] VITALS (11 sets, daily range): BP systolic 89–145; BP diastolic 61–79; PULSE 54–111; RESP 14–17; TEMP 97–99.4; O2SAT 94–99
[2025-05-30 04:15] LABS: MEAN PLATELET VOLUME 7.8 FL (7.4-10.4); RED CELL DISTRIBUTION WIDTH 14.3 % (11.5-14.5)
[2025-05-30 04:28] LABS: CHOL/HDL RATIO 5.5 (0.00-4.99); CREATININE 2.29 MG/DL (0.60-1.10); LDL CHOLESTEROL 45 MG/DL (50-100); TOTAL CARBON DIOXIDE 20.2 MMOL/L (24-32); eCRCL 39 ML/MIN; eGFR 30 ML/MIN
[2025-05-30 05:10] LABS: EOSINOPHILS % (MANUAL) 1.0 % (0-6); MONOCYTES % (MANUAL) 8.0 % (2-12)
[2025-05-30 05:11] LABS: NEUTROPHILS % (MANUAL) 50 % (42-75)
[2025-05-30 05:12] LABS: LYMPHOCYTES % (MANUAL) 30 % (21-51); REACTIVE LYMPHOCYTES % 11 % (0-0)
[2025-05-30 05:13] LABS: PLATELET ESTIMATE NORMAL
[2025-05-30 06:02] LABS: LEUKOCYTE ESTERASE ,URINE NEGATIVE (Neg); NITRITES, URINE NEGATIVE (Neg); OCCULT BLOOD,URINE NEGATIVE (Neg)
[2025-05-30 06:03] LABS: UA COLLECTION TYPE VOIDED
[2025-05-30 07:21] LABS: CREATININE,URINE RANDOM 87.0 MG/DL; UA EOSINOPHILS NO EOS /HPF; UA UREA RANDOM 495.0 MG/DL
[2025-05-30 07:26] LABS: OSMOLALITY UA 346.0 MOSM/K (50-1400)
[2025-05-30] MEDS: normal saline 1000ml 1,000 ML IV ONE (09:10)
[2025-05-30 09:19] LABS: C DIFF ANTIGEN NEGATIVE (NEGATIVE); C DIFF SPECIMEN=DIARRHEA? ACCEPTABLE; C DIFFICILE TOXINS A&B NEGATIVE (Neg)
--- NOTE | 2025-05-30 14:01 | RADIOLOGY REPORT ---
INDICATION: Acute increase in creatinine TECHNIQUE: Multiple real-time sonographic images of the kidneys and bladder were obtained. COMPARISON: None FINDINGS: The right kidney measures 12 cm in length, which is normal in size. There is normal echogenicity of the right kidney. No hydronephrosis. The left kidney measures 13 cm in length, which is normal in size. There is normal echogenicity of the left kidney. No hydronephrosis. No large intraluminal masses are seen in the bladder. Prior to voiding the bladder volume measures volume 374 cc. IMPRESSION: 1. Normal sonographic appearance of the kidneys. No hydronephrosis.
--- NOTE | 2025-05-30 17:15 | PROGRESS NOTE- Residence ---
Progress Note - Resident Providers to CC Resident Creating Document: WILD PEARCE RES ~ Antibiotic Timeout Antibiotic Ordered?: No Subjective Patient was seen and examined bedside, claimed of significant improvement since yesterday. Acute overnight symptoms. Was able to tolerate food. Objective Vital Signs Date Time Temp Pulse Resp B/P (MAP) Pulse Ox O2 Delivery O2 Flow Rate FiO2 05/30/25 10:00 97.0 85 17 119/61 (80) 95 Room Air Result Diagram: 05/30/25 0352 05/30/25 0352 Awake , alert, and oriented x4, resting comfortably in the bed, in no acute distress HEENT: Atraumatic, normocephalic, EOMI, anicteric sclera ; pink conjunctiva Neck: Trachea midline. Supple, full range of motion, no JVD Cardiac: Regular rhythm, regular rate with no murmurs all over the precordium. Respiratory: Equal breath sounds bilaterally, no tachypnea, no wheezing ,rub or rales, Chest wall is symmetric and without deformity. Gastrointestinal: Abdomen symmetric, obese, soft, non-tender, normal bowel sounds x4 quadrant, normoactive Musculoskeletal: No pedal edema, no cyanosis Neurological: Speech is clear, alert, and oriented x 4. No motor or sensory deficit, deep tendon reflexes normal, cerebellar intact. Cranial nerves II-XII intact. Skin: Warm and dry Advance Care Planning Advanced Care plannin - 30 Minutes Plan Plan 1. Nausea, Vomiting, and Watery Diarrhea (10 days) with Severe Weight Loss (40 lbs/2 weeks) Likely multifactorial: Viral gastroenteritis vs colitis flare Dehydration evident with poor oral intake, fatigue, dizziness. Plan: Stool studies: C. diff, stool leukocytes, stool O&P Blood cultures ordered IV fluid resuscitation with electrolyte monitoring NS at 100 cc/hour Antiemetics (ondansetron) Clear liquid diet, advance as tolerated 05/31/2025: Patient tolerated common controlled diet since yesterday Peripheral blood smear showed lymphocytosis with atypical lymphocytes, no blasts No signs of any infection: WBC count normal, no elevated temperatures No further episodes of vomitings Diarrhea improved with semisolid stools Stool studies: C diff negative, leukocytes negative; cultures pending; stool occult blood test negative Continue IV fluid resuscitation NS at 100 cc/hours Ordered 1 L of IV bolus in a.m. 2. Acute Kidney Injury- ATN (Cr 2.93 on 05/19, intrinsic renal pathology secondary to severe dehydration) On olmesartan and hydrochlorothiazide (both can worsen renal function in hypovolemia) Plan: Creatinine today: 3.85, continue monitoring CMP Hold nephrotoxic meds (metformin, HCTZ, olmesartan) Urine lytes ordered: Urine sodium, urine creatinine, urine osmolality, serum osmolality, urine Urea, , urine potassium Trend renal function and electrolytes q12h IV fluids with close sodium monitoring Ordered renal ultrasound 05/30/2025: Urine lytes: Urine creatinine 87, urine sodium 71, urine potassium 9, urine osmolality 346, FENA 2.4 % (representing intrinsic renal pathology) Creatinine is improved from 3.85-2.29 today, we shall monitor CMP tomorrow in a.m. Hold nephrotoxic agents as above Renal ultrasound: Normal 3. Transaminitis with Possible enhancing focus in the right hepatic lobe History of alcohol not reported, but concern for underlying hepatic disease. Plan: AST and ALT have trended down from the previous admission to [address] abdomen/pelvis 1.6 x 1.2 cm nonspecific enhancing focus within the right hepatic lobe with additional 3 x 6.8 cm area of ill-defined enhancement within the liver. Hepatitis viral panel ordered Patient will benefit with Abdominal ultrasound with liver Doppler MRI liver for further characterization of lesion outpatient Avoid hepatotoxic medications. 05/30/2025: Patient will definitely benefit from a CT abdominal scan with IV contrast But in view of his kidney injury, we are currently avoiding imaging with contrast Further outpatient monitoring of dizziness renal parameters were stabilized Hepatitis viral panel still pending 4. Unintentional Weight Loss & Constitutional Symptoms (40 lbs/2 weeks, diaphoresis, hot flashes) Red flag for malignancy, systemic infection, or metabolic/endocrine disorder Plan: Chest CT abdomen showed: Colonic diverticulosis without diverticulitis. Fluid- filled nondistended Proximal small bowel loops which may be seen enteritis.1.6 x 1.2 cm nonspecific enhancing focus within the right hepatic lobe with additional 3 x 6.8 cm area of ill-defined enhancement within the liver. Hepatic protocol see CT/MRI may be considered for further evaluation.Left renal parapelvic cyst/mild pelviectasis. Renal ultrasound is recommended for further evaluation.6 mm Left basilar solid nodule follow-up per Fleischner criteria is recommended. Ordered alpha-fetoprotein; pending 5.Paresthesias (right foot, right hand) Electrolytes: Sodium 130, potassium 3.[address] head to rule out CVA given vascular risk factors (HTN, DM) Plan: Magnesium phosphorus ordered Calcium levels 8.3, corrected calcium 7.9 B12, folate, TSH ordered 05/30/2025: Magnesium levels 1.6, phosphorus is from levels pending TSH: 1.43 Sodium: 133, potassium 4.1 CT head: Normal 6. Hyponatremia (hypotonic hypovolemic hyponatremia) Sodium levels 130 today Probably secondary to vomiting and diarrheal episodes in the past 10 days Also could be secondary to nutritional deficiencies, as patient had poor oral intake over the last few days Plan Continue NS at 100 cc/hour Ordered urine sodium, urine osmolality and serum osmolality Continue monitoring sodium levels with BMP daily 05/30/2025: Sodium levels improved to 133 Continue fluid restriction trended cc/hour NS 7. Chronic Conditions Diabetes Mellitus: A1c 7.1, Hold metformin until renal function stabilizes; glucose levels within reference range Hypertension: Hold olmesartan and HCTZ until ISAAC improves; ordered amlodipine 5 mg p.o. daily Hyperlipidemia: ASCVD score 11.9%, Lipid panel triglycerides 292, LDL 45; initiated atorvastatin 40 mg daily Morbid Obesity: BMI 45.4: Patient will benefit from gastric surgery, outpatient management DVT prophylaxis with SQ heparin. GI prophylaxis Protonix Code Status: Full code Carb controlled diet, please transition to clear liquid diet with patient is unable to tolerate Wild Peacre MD Internal Medicine Resident, PGY-2 Date of Service: May 30, 2025 Billing Provider: VICTORINA CISNEROS MD Common Visit Codes: [id number] INP/OBS CARE(HIGH) WILD PEARCE, RES May 30, 2025 17:15 VICTORINA CISNEROS MD May 31, 2025 06:15
[2025-05-31] VITALS (7 sets, daily range): BP systolic 97–116; BP diastolic 55–70; PULSE 70–104; RESP 14–20; TEMP 98.2–99.9; O2SAT 93–100
[2025-05-31 06:05] LABS: MEAN PLATELET VOLUME 7.7 FL (7.4-10.4); RED CELL DISTRIBUTION WIDTH 14.3 % (11.5-14.5)
[2025-05-31 06:13] LABS: CREATININE 1.67 MG/DL (0.60-1.10); PHOSPHORUS 2.3 MG/DL (2.3-4.5); TOTAL CARBON DIOXIDE 27.4 MMOL/L (24-32); eCRCL 53 ML/MIN; eGFR 43 ML/MIN
[2025-05-31 06:42] LABS: LYMPHOCYTES % (MANUAL) 47.0 % (21-51); MONOCYTES % (MANUAL) 8.0 % (2-12); NEUTROPHILS % (MANUAL) 41.0 % (42-75); REACTIVE LYMPHOCYTES % 4.0 % (0-0)
[2025-05-31 06:43] LABS: PLATELET ESTIMATE NORMAL
[2025-05-31] MEDS: normal saline 1000ml 1,000 ML IVB ONE (13:15)
--- NOTE | 2025-05-31 18:44 | PROGRESS NOTE- Residence ---
Progress Note - Resident Providers to CC Resident Creating Document: WILD PEARCE, BOOKER ~ Antibiotic Timeout Antibiotic Ordered?: No Subjective Patient was seen and examined bedside, claimed of excessive fatigue in comparison to yesterday. No nausea or vomitings or diarrhea. Objective Vital Signs Date Time Temp Pulse Resp B/P (MAP) Pulse Ox O2 Delivery O2 Flow Rate FiO2 05/31/25 09:50 77 110/57 (74) 84 104/62 (76) 70 97/55 (69) 05/31/25 08:00 16 Room Air 05/31/25 07:01 98.2 93 Result Diagram: 05/31/25 0501 05/31/25 0501 Awake , alert, and oriented x4, resting comfortably in the bed, in no acute distress HEENT: Atraumatic, normocephalic, EOMI, anicteric sclera ; pink conjunctiva Neck: Trachea midline. Supple, full range of motion, no JVD Cardiac: Regular rhythm, regular rate with no murmurs all over the precordium. Respiratory: Equal breath sounds bilaterally, no tachypnea, no wheezing ,rub or rales, Chest wall is symmetric and without deformity. Gastrointestinal: Abdomen symmetric, obese, soft, non-tender, normal bowel sounds x4 quadrant, normoactive Musculoskeletal: No pedal edema, no cyanosis Neurological: Speech is clear, alert, and oriented x 4. No motor or sensory deficit, deep tendon reflexes normal, cerebellar intact. Cranial nerves II-XII intact. Skin: Warm and dry Advance Care Planning Advanced Care plannin - 30 Minutes Plan Plan 1. Nausea, Vomiting, and Watery Diarrhea (10 days) with Severe Weight Loss (40 lbs/2 weeks) Likely multifactorial: Viral gastroenteritis vs colitis flare Dehydration evident with poor oral intake, fatigue, dizziness. Plan: Stool studies: C. diff, stool leukocytes, stool O&P Blood cultures ordered IV fluid resuscitation with electrolyte monitoring NS at 100 cc/hour Antiemetics (ondansetron) Clear liquid diet, advance as tolerated 05/30/2025: Patient tolerated common controlled diet since yesterday Peripheral blood smear showed lymphocytosis with atypical lymphocytes, no blasts No signs of any infection: WBC count normal, no elevated temperatures No further episodes of vomitings Diarrhea improved with semisolid stools Stool studies: C diff negative, leukocytes negative; cultures pending; stool occult blood test negative Continue IV fluid resuscitation NS at 100 cc/hours Ordered 1 L of IV bolus in a.m. 05/31/2025: Patient has no nausea/diarrhea since yesterday WBC count has been normal, with no elevated temperature during this hospital stay Stool cultures: Reduced enteric blanca with no other growth of organisms Initiated culturelle b.i.d. Continue IV fluid resuscitation with NS at 100 cc/hour Received 1 L of IV bolus today 2. Acute Kidney Injury- ATN (Cr 2.93 on 05/19, intrinsic renal pathology secondary to severe dehydration) On olmesartan and hydrochlorothiazide (both can worsen renal function in hypovolemia) Plan: Creatinine today: 3.85, continue monitoring CMP Hold nephrotoxic meds (metformin, HCTZ, olmesartan) Urine lytes ordered: Urine sodium, urine creatinine, urine osmolality, serum osmolality, urine Urea, , urine potassium Trend renal function and electrolytes q12h IV fluids with close sodium monitoring Ordered renal ultrasound 05/30/2025: Urine lytes: Urine creatinine 87, urine sodium 71, urine potassium 9, urine osmolality 346, FENA 2.4 % (representing intrinsic renal pathology) Creatinine is improved from 3.85-2.29 today, we shall monitor CMP tomorrow in a.m. Hold nephrotoxic agents as above Renal ultrasound: Normal 05/31/2025: Creatinine 1.67, continue fluid resuscitation as above 3. Transaminitis with Possible enhancing focus in the right hepatic lobe History of alcohol not reported, but concern for underlying hepatic disease. Plan: AST and ALT have trended down from the previous admission to [address] abdomen/pelvis 1.6 x 1.2 cm nonspecific enhancing focus within the right hepatic lobe with additional 3 x 6.8 cm area of ill-defined enhancement within the liver. Hepatitis viral panel ordered Patient will benefit with Abdominal ultrasound with liver Doppler MRI liver for further characterization of lesion outpatient Avoid hepatotoxic medications. 05/30/2025: Patient will definitely benefit from a CT abdominal scan with IV contrast But in view of his kidney injury, we are currently avoiding imaging with contrast Further outpatient monitoring of dizziness renal parameters were stabilized Hepatitis viral panel still pending 05/31/2025: AST trended up to 98 and ALT to 113 Awaiting past medical records, for an estimate of baseline hepatic panel 4. Unintentional Weight Loss & Constitutional Symptoms (40 lbs/2 weeks, diaphoresis, hot flashes) Red flag for malignancy, systemic infection, or metabolic/endocrine disorder Plan: Chest CT abdomen showed: Colonic diverticulosis without diverticulitis. Fluid- filled nondistended Proximal small bowel loops which may be seen enteritis.1.6 x 1.2 cm nonspecific enhancing focus within the right hepatic lobe with additional 3 x 6.8 cm area of ill-defined enhancement within the liver. Hepatic protocol see CT/MRI may be considered for further evaluation.Left renal parapelvic cyst/mild pelviectasis. Renal ultrasound is recommended for further evaluation.6 mm Left basilar solid nodule follow-up per Fleischner criteria is recommended. Ordered alpha-fetoprotein; pending 5.Paresthesias (right foot, right hand) Electrolytes: Sodium 130, potassium 3.[address] head to rule out CVA given vascular risk factors (HTN, DM) Plan: Magnesium phosphorus ordered Calcium levels 8.3, corrected calcium 7.9 B12, folate, TSH ordered 05/30/2025: Magnesium levels 1.6, phosphorus 2.3 TSH: 1.43 Sodium: 133, potassium 4.1 CT head: Normal 6. Hyponatremia (isotonic hyponatremia) Sodium levels 130 today Probably secondary to vomiting and diarrheal episodes in the past 10 days Also could be secondary to nutritional deficiencies, as patient had poor oral intake over the last few days Plan Continue NS at 100 cc/hour Ordered urine sodium, urine osmolality and serum osmolality Continue monitoring sodium levels with BMP daily 05/30/2025: Sodium levels improved to 133 Continue fluid restriction trended cc/hour NS 05/31/2025: No hyper proteinemia Lipid panel showed elevated triglycerides, hypothyroidism and could be a probable recent for hyponatremia especially isotonic Continue NS at 100 cc/hour monitor sodium levels daily 7. Chronic Conditions Diabetes Mellitus: A1c 7.1, Hold metformin until renal function stabilizes; glucose levels within reference range Hypertension: Hold olmesartan and HCTZ until ISAAC improves; continue amlodipine 5 mg p.o. daily Hyperlipidemia: ASCVD score 11.9%, Lipid panel triglycerides 292, LDL 45; initiated atorvastatin 40 mg daily Morbid Obesity: BMI 45.4: Patient will benefit from gastric surgery, outpatient management DVT prophylaxis with SQ heparin. GI prophylaxis Protonix Code Status: Full code Wild Pearce MD Internal Medicine Resident, PGY-2 Addendum pt with wt loss, had diarrhea, has low energy; 2 liver lesions, likely noninfectious; unable to get a ct iv contrast yet; remains hypotensive despite h/o hypertension; carcinoid tumor; 24 hours urine collection for 5 HIAA Date of Service: May 31, 2025 Billing Provider: VICTORINA CISNEROS MD Common Visit Codes: [id number] INP/OBS CARE(HIGH) WILD PEARCE, RES May 31, 2025 18:44 VICTORINA CISNEROS MD May 31, 2025 20:37
[2025-05-31] MEDS: lactobacillus rhamnosus 10,000 MMU CELLS/CAPSULE PO SCH (19:57)
[2025-06-01 04:56] LABS: RED CELL DISTRIBUTION WIDTH 14.4 % (11.5-14.5)
[2025-06-01 04:57] LABS: MEAN PLATELET VOLUME 7.5 FL (7.4-10.4)
[2025-06-01 05:20] LABS: AFP,SERUM, TUMOR MARKER <1.8 ng/mL (0.0-8.4)
[2025-06-01 05:20] LABS: HBSAG SCREEN Negative (Negative); HEP B CORE AB, IGM Negative (Negative); HEP B CORE AB, TOT Negative (Negative)
[2025-06-01 05:25] LABS: CREATININE 1.39 MG/DL (0.60-1.10); TOTAL CARBON DIOXIDE 23.6 MMOL/L (24-32); eCRCL 64 ML/MIN; eGFR 53 ML/MIN
[2025-06-01 05:32] LABS: BANDS% (MANUAL) 1.0 % (0-10); LYMPHOCYTES % (MANUAL) 43.0 % (21-51); MONOCYTES % (MANUAL) 11.0 % (2-12); NEUTROPHILS % (MANUAL) 39.0 % (42-75); REACTIVE LYMPHOCYTES % 6.0 % (0-0)
[2025-06-01 05:33] LABS: PLATELET ESTIMATE NORMAL
[2025-06-01 06:43] VITALS: BP 104/50; PULSE 84; RESP 20; TEMP 98.9; O2SAT 95
[2025-06-01] MEDS: pantoprazole 40mg Tablet.DR PO SCH (07:29)
[2025-06-01 10:00] VITALS: BP_SYST 112; BP_SYST 123; BP_DIAS 61; BP_DIAS 70; PULSE 90; RESP 16; TEMP 98; O2SAT 97
[2025-06-01] MEDS ORDERED: AMOX-117 PO (10:13)
[2025-06-01] MEDS: normal saline 1000ml 1,000 ML IV ONE (11:56)
--- NOTE | 2025-06-01 12:41 | PROGRESS NOTE- Residence ---
Progress Note - Resident Providers to CC Resident Creating Document: WILD PEARCE RES ~ Antibiotic Timeout Antibiotic Ordered?: No Subjective Patient was seen and examined bedside, patient feels completely normal with no further symptoms. No nausea or vomitings or diarrhea. Objective Vital Signs Date Time Temp Pulse Resp B/P (MAP) Pulse Ox O2 Delivery O2 Flow Rate FiO2 06/01/25 10:00 90 123/61 (81) 90 112/ 06/01/25 08:18 Room Air 06/01/25 06:43 98.9 20 95 Result Diagram: 06/01/2542606/01/25426 Awake , alert, and oriented x4, resting comfortably in the bed, in no acute distress HEENT: Atraumatic, normocephalic, EOMI, anicteric sclera ; pink conjunctiva Neck: Trachea midline. Supple, full range of motion, no JVD Cardiac: Regular rhythm, regular rate with no murmurs all over the precordium. Respiratory: Equal breath sounds bilaterally, no tachypnea, no wheezing ,rub or rales, Chest wall is symmetric and without deformity. Gastrointestinal: Abdomen symmetric, obese, soft, non-tender, normal bowel sounds x4 quadrant, normoactive Musculoskeletal: No pedal edema, no cyanosis Neurological: Speech is clear, alert, and oriented x 4. No motor or sensory deficit, deep tendon reflexes normal, cerebellar intact. Cranial nerves II-XII intact. Skin: Warm and dry Advance Care Planning Advanced Care plannin - 30 Minutes Plan Plan 1. Nausea, Vomiting, and Watery Diarrhea (10 days) with Severe Weight Loss (40 lbs/2 weeks) Likely multifactorial: Viral gastroenteritis vs colitis flare Dehydration evident with poor oral intake, fatigue, dizziness. Plan: Stool studies: C. diff, stool leukocytes, stool O&P Blood cultures ordered IV fluid resuscitation with electrolyte monitoring NS at 100 cc/hour Antiemetics (ondansetron) Clear liquid diet, advance as tolerated 05/30/2025: Patient tolerated common controlled diet since yesterday Peripheral blood smear showed lymphocytosis with atypical lymphocytes, no blasts No signs of any infection: WBC count normal, no elevated temperatures No further episodes of vomitings Diarrhea improved with semisolid stools Stool studies: C diff negative, leukocytes negative; cultures pending; stool occult blood test negative Continue IV fluid resuscitation NS at 100 cc/hours Ordered 1 L of IV bolus in a.m. 05/31/2025: Patient has no nausea/diarrhea since yesterday WBC count has been normal, with no elevated temperature during this hospital stay Stool cultures: Reduced enteric blanca with no other growth of organisms Initiated culturelle b.i.d. Continue IV fluid resuscitation with NS at 100 cc/hour Received 1 L of IV bolus today 06/01/2025: No further worsening of symptoms Continue fluid resuscitation as above, also ordered a repeat IV bolus today As patient has diarrhea, hypotension, flushing, a suspected liver lesion, refractory hypotension in spite of receiving aggressive fluid correction: All of these symptoms point towards patient having a carcinoid tumor Hence ordered 24 hour urine 5 HIAA starting from 11:30 a.m. today 2. Acute Kidney Injury- ATN (Cr 2.93 on 05/19, intrinsic renal pathology secondary to severe dehydration) On olmesartan and hydrochlorothiazide (both can worsen renal function in hypovolemia) Plan: Creatinine today: 3.85, continue monitoring CMP Hold nephrotoxic meds (metformin, HCTZ, olmesartan) Urine lytes ordered: Urine sodium, urine creatinine, urine osmolality, serum osmolality, urine Urea, , urine potassium Trend renal function and electrolytes q12h IV fluids with close sodium monitoring Ordered renal ultrasound 05/30/2025: Urine lytes: Urine creatinine 87, urine sodium 71, urine potassium 9, urine osmolality 346, FENA 2.4 % (representing intrinsic renal pathology) Creatinine is improved from 3.85-2.29 today, we shall monitor CMP tomorrow in a.m. Hold nephrotoxic agents as above Renal ultrasound: Normal 05/31/2025: Creatinine 1.67, continue fluid resuscitation as above 06/01/2025: Creatinine trended down to 1.39, continue fluid resuscitation However ordered another L of bolus with repeat BMP at 8:00 p.m. today, as patient is scheduled for CTA abdomen/ pelvis oral and IV contrast 3. Transaminitis with Possible enhancing focus in the right hepatic lobe History of alcohol not reported, but concern for underlying hepatic disease. Plan: AST and ALT have trended down from the previous admission to [address] abdomen/pelvis 1.6 x 1.2 cm nonspecific enhancing focus within the right hepatic lobe with additional 3 x 6.8 cm area of ill-defined enhancement within the liver. Hepatitis viral panel ordered Patient will benefit with Abdominal ultrasound with liver Doppler MRI liver for further characterization of lesion outpatient Avoid hepatotoxic medications. 05/30/2025: Patient will definitely benefit from a CT abdominal scan with IV contrast But in view of his kidney injury, we are currently avoiding imaging with contrast Further outpatient monitoring of dizziness renal parameters were stabilized Hepatitis viral panel still pending 05/31/2025: AST trended up to 98 and ALT to 113 Awaiting past medical records, for an estimate of baseline hepatic panel 06/01/2025: AST and ALT are trending upwards, ALT 125, AST 92 Patient had a CMP on March 24, 2025: AST and ALT were with in normal limits Further evaluation with CTA abdomen and pelvis with oral and IV contrast tomorrow in a.m. 4. Unintentional Weight Loss & Constitutional Symptoms (40 lbs/2 weeks, diaphoresis, hot flashes) Red flag for malignancy, systemic infection, or metabolic/endocrine disorder Plan: Chest CT abdomen showed: Colonic diverticulosis without diverticulitis. Fluid- filled nondistended Proximal small bowel loops which may be seen enteritis.1.6 x 1.2 cm nonspecific enhancing focus within the right hepatic lobe with additional 3 x 6.8 cm area of ill-defined enhancement within the liver. Hepatic protocol see CT/MRI may be considered for further evaluation.Left renal parapelvic cyst/mild pelviectasis. Renal ultrasound is recommended for further evaluation.6 mm Left basilar solid nodule follow-up per Fleischner criteria is recommended. Alpha fetoprotein: Less than 1.8 5.Paresthesias (right foot, right hand) Electrolytes: Sodium 130, potassium 3.[address] head to rule out CVA given vascular risk factors (HTN, DM) Plan: Magnesium phosphorus ordered Calcium levels 8.3, corrected calcium 7.9 B12, folate, TSH ordered 05/30/2025: Magnesium levels 1.6, phosphorus 2.3 TSH: 1.43 Sodium: 133, potassium 4.1 CT head: Normal 6. Hyponatremia (isotonic hyponatremia) Sodium levels 130 today Probably secondary to vomiting and diarrheal episodes in the past 10 days Also could be secondary to nutritional deficiencies, as patient had poor oral intake over the last few days Plan Continue NS at 100 cc/hour Ordered urine sodium, urine osmolality and serum osmolality Continue monitoring sodium levels with BMP daily 05/30/2025: Sodium levels improved to 133 Continue fluid restriction trended cc/hour NS 05/31/2025: No hyper proteinemia Lipid panel showed elevated triglycerides, hypothyroidism and could be a probable recent for hyponatremia especially isotonic Continue NS at 100 cc/hour monitor sodium levels daily 06/01/2025: Sodium levels normalized to 138 7. Chronic Conditions Diabetes Mellitus: A1c 7.1, Hold metformin until renal function stabilizes; glucose levels within reference range Hypertension: Hold olmesartan and HCTZ until ISAAC improves; continue amlodipine 5 mg p.o. daily Hyperlipidemia: ASCVD score 11.9%, Lipid panel triglycerides 292, LDL 45; initiated atorvastatin 40 mg daily Morbid Obesity: BMI 45.4: Patient will benefit from gastric surgery, outpatient management DVT prophylaxis with SQ heparin. GI prophylaxis Protonix Code Status: Full code Wild Pearce MD Internal Medicine Resident, PGY-2 Date of Service: Jun 01, 2025 Billing Provider: VICTORINA CISNEROS MD Common Visit Codes: [id number] INP/OBS CARE(HIGH) WILD PEARCE, RES Jun 01, 2025 12:41 VICTORINA CISNEROS MD Jun 02, 2025 07:28
[2025-06-01 18:00] VITALS: BP 118/63; PULSE 84; RESP 20; TEMP 97.7; O2SAT 96
[2025-06-01 20:00] VITALS: BP_SYST 116; BP_SYST 120; BP_SYST 88; BP_DIAS 66; BP_DIAS 68; PULSE 72; PULSE 88; RESP 20; O2SAT 96
[2025-06-01 20:35] LABS: CREATININE 1.58 MG/DL (0.60-1.10); TOTAL CARBON DIOXIDE 26.6 MMOL/L (24-32); eCRCL 56 ML/MIN; eGFR 46 ML/MIN
[2025-06-01] MEDS: diatr meglu/diatrizoate 30ml oral sol.-(3 dose) bottle PO SCH (21:01)
[2025-06-01 22:00] VITALS: BP_SYST 116; BP_SYST 120; BP_SYST 88; BP_DIAS 66; BP_DIAS 68; PULSE 72; PULSE 88; PULSE 92; RESP 18; TEMP 98; O2SAT 97
[2025-06-02 05:57] LABS: MEAN PLATELET VOLUME 7.5 FL (7.4-10.4); RED CELL DISTRIBUTION WIDTH 14.7 % (11.5-14.5)
[2025-06-02 06:00] VITALS: BP 113/53; PULSE 90; RESP 20; TEMP 98.9; O2SAT 93
[2025-06-02 06:09] LABS: CREATININE 1.29 MG/DL (0.60-1.10); TOTAL CARBON DIOXIDE 22.8 MMOL/L (24-32); eCRCL 69 ML/MIN; eGFR 58 ML/MIN
[2025-06-02] MEDS ORDERED: magnesium sulf-water 2g/50mL 50 ML IV PRN (07:00)
[2025-06-02] MEDS ORDERED: potassium Cl 40MEQ/1/2NS 520ml 520 ML IV PRN (07:00)
[2025-06-02] MEDS ORDERED: magnesium sulf-water 4G/100mL 100 ML IV PRN (07:00)
[2025-06-02] MEDS ORDERED: potassium Cl 20 mEq SR tablet PO PRN ×2 (07:00)
[2025-06-02] MEDS: magnesium Cl slow-release 64mg tablet PO PRN (07:22)
[2025-06-02] MEDS ORDERED: iohexol 300mg/ml 100ml inj. ONE (07:55)
[2025-06-02 08:03] LABS: EOSINOPHILS % (MANUAL) 1.0 % (0-6); LYMPHOCYTES % (MANUAL) 24.0 % (21-51); MONOCYTES % (MANUAL) 3.0 % (2-12); NEUTROPHILS % (MANUAL) 26.0 % (42-75); REACTIVE LYMPHOCYTES % 46.0 % (0-0)
[2025-06-02 08:04] LABS: PLATELET ESTIMATE NORMAL
[2025-06-02 08:13] VITALS: RESP 20; O2SAT 93
[2025-06-02 08:53] VITALS: BP 116/74; PULSE 88
[2025-06-02 08:55] VITALS: BP_SYST 116; BP_SYST 122; BP_SYST 134; BP_DIAS 65; BP_DIAS 74; BP_DIAS 78; PULSE 106; PULSE 88; PULSE 95
[2025-06-02 09:54] VITALS: BP 114/68; PULSE 91; RESP 18; TEMP 98.6; O2SAT 98
--- NOTE | 2025-06-02 12:30 | RADIOLOGY REPORT ---
Indication: Liver lesion Technique: CT axial images of the abdomen and pelvis are obtained with intravenous contrast including arterial and venous phase imaging. Coronal and sagittal reformats were obtained. Radiation Dose Information: CTDI volume is 34 mGy. Dose-length product is 3639 mGy*cm Comparison: None FINDINGS: Lung bases demonstrate no pleural effusion. Small pericardial effusion. Adrenal glands unremarkable. m pancreas unremarkable. Splenomegaly with the spleen measuring 16 cm craniocaudal. Splenic calcifications consistent with remote granulomatous disease.. Hepatic steatosis. Right hepatic lobe hypervascular lesion measuring 2.1 cm which does not demonstrate washout and de monstrates persistent hyperenhancement. Hypervascularity surrounding the gallbladder within the 5.5 x 2.8 cm, persists on the delayed venous phase imaging. No CT evidence for cholelithiasis. The kidneys demonstrate mild left renal hydroureteronephrosis. Stomach is relatively nondistended. Small bowel loops are normal in caliber. Colonic diverticula. Normal appendix. Abdominal aorta normal in caliber. Mesenteric edema/ small amount of ascites fluid. Bladder relatively nondistended. No inguinal lymphadenopathy. Moderate thoracic degenerative disc disease. Paraumbilical hernia containing fluid measuring 4.5 x 3.4 cm. Soft tissue edema/anasarca. Anterior abdominal wall soft tissue skin thickening. IMPRESSION: Hypervascular lesion in the right hepatic lobe measuring 2.1 cm, likely representing flash hemangioma. Region of hyperemia surrounding the gallbladder within the left medial hepatic lobe measuring approximately 5.5 cm, may represent sequela of transient hepatic attenuation differentiation. Recommend dedicated MRI abdomen with and without contrast multiphasic imaging to further characterize and continued following imaging surveillance to exclude any type of aggressive etiology. Mild left hydroureteronephrosis could be secondary to urinary tract infection, pyelonephritis, recently passed calculus. Paraumbilical hernia containing fluid measuring 4.5 x 3.4 cm Soft tissue edema/ anasarca. Small amount of ascites fluid. Anterior abdominal wall subcutaneous thickening with stranding may represent sequela of cellulitis. Correlate clinically. Other findings as described.
[2025-06-02] MEDS ORDERED: ONDA-245 PO (14:50)
[2025-06-02] MEDS ORDERED: LACT1CAP26 PO (14:50)
[2025-06-02] MEDS ORDERED: PANT40TA54 PO (14:50)
[2025-06-02] MEDS ORDERED: ATOR20TA66 PO (14:50)
--- NOTE | 2025-06-02 18:21 | DISCHARGE SUMMARY-Residence ---
Discharge Summary Providers to CC Resident Creating Document: [facility]ILD [facility]A, RES ~ Discharge Summary Admission Diagnosis: ISAAC Hospital Course DATE OF ADMISSION: 05/29/2025 DATE OF DISCHARGE: 06/02/2025 Discharge Diagnosis\Comment: 1. Nausea, Vomiting, and Watery Diarrhea (10 days) with Severe Weight Loss (40 lbs/2 weeks) Likely multifactorial: Viral gastroenteritis vs colitis flare 2. Acute Kidney Injury- ATN (Cr 2.93 on 05/19, intrinsic renal pathology secondary to severe dehydration) 3. Transaminitis with Possible enhancing focus in the right hepatic lobe 4. Unintentional Weight Loss & Constitutional Symptoms (40 lbs/2 weeks, diaphoresis, hot flashes) 5.Paresthesias (right foot, right hand) 6. Hyponatremia (isotonic hyponatremia) 7. Chronic Conditions Diabetes Mellitus Hypertension Hyperlipidemia Morbid Obesity (BMI 49.4) Operations\Procedures: None Consultants: None Complications: None Condition on DC: Stable New Medications: Ondansetron 8mg ODT (Ondansetron Odt) 8 Mg Tab.rapdis 1 TAB PO Q8H for nausea/vomiting for 2 Days, #6 TAB 0 Refills Atorvastatin Calcium (Atorvastatin Calcium) 20 Mg Tablet 40 MG PO DAILY for 30 Days, #30 TAB Lactobacillus Rhamnosus (Culturelle) 10 Billion Cell Capsule 61626 MMU PO BID for 30 Days, #30 CAP Pantoprazole Sodium (Pantoprazole Sodium) 40 Mg Tablet.dr 40 MG PO BKF for 30 Days, #30 TAB.SR Continued Medications: Metformin HCl (Metformin HCl) 500 Mg Tablet 2 TAB PO BID Olmesartan/Hydrochlorothiazide (Olmesartan-Hctz 40-25 mg Tab) 40 Mg-25 Mg Tablet 1 TAB PO DAILY Tirzepatide (Mounjaro) 5 Mg/0.5 Ml Pen.injctr Discontinued Medications: Amox Tr/Potassium Clavulanate (Augmentin 875-125 Tablet) 1 Each Tablet 1 TAB PO Q12H for 10 Days, #20 TAB Discharge Summary: HPI as per admitting physician: A 54 year-old male with a past medical history of type 2 diabetes mellitus, hypertension, and colitis presented to the ED with complaints of nausea, vomiting, diarrhea, profound fatigue, dizziness and weight loss. He reports the onset of nausea, vomiting, and watery diarrhea approximately 10 days prior to admission after he returned back from his trip to [place] where he stayed at [facility]. The vomiting lasted about three days, consisting of food contents only, without hematemesis or coffee- ground material. He denies hematochezia, melena, or foul-smelling stools. The diarrhea has been watery in consistency, with no associated blood. He also describes progressive fatigue, excessive sleepiness, dizziness, and unintentional weight loss of nearly 40 pounds over the past two weeks. On 05/19, he initially presented to the emergency department with similar complaints. Labs at that time revealed elevated AST/ALT and an elevated creatinine of 2.93. A CT abdomen was performed, which showed a 1.6 x 1.2 cm nonspecific enhancing focus within the right hepatic lobe with additional 3 x 6.8 cm area of ill-defined enhancement within the liver. Despite these abnormalities, the patient left against medical advice due to work obligations. Since then, his symptoms persisted, with ongoing diarrhea and poor oral intake. He reports that he has not been able to eat since 05/19, with minimal tolerance of fluids. Last night, he noticed transient numbness and tingling of his right foot while driving, as well as paresthesia of his right hand. He denies abdominal pain but notes intermittent abdominal pressure and discomfort. He also endorses episodes of diaphoresis and hot flashes. He has no chest pain, palpitations, cough, shortness of breath, or dysuria. 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 His medications include metformin, olmesartan, and hydrochlorothiazide. He was diagnosed with diabetes and hypertension approximately three years ago, with recent medication titration in January. He denies recent alcohol or illicit drug use. Hospital course: On admission, he appeared dehydrated with fatigue, dizziness, and poor oral intake. Stool studies and blood cultures were sent, and the patient was started on IV fluid resuscitation with electrolyte monitoring. He was also initiated on antiemetics and a clear liquid diet. Over the next few days, gastrointestinal symptoms steadily improved; vomiting resolved, diarrhea lessened, and he tolerated advancement to a controlled diet. Stool studies returned negative for C. difficile, leukocytes, and occult blood. Stool cultures later showed only reduced enteric blanca with no significant growth. A peripheral smear revealed lymphocytosis with atypical lymphocytes, but no blasts. By hospital day three, he was free of nausea and diarrhea. Given the constellation of diarrhea, flushing, refractory hypotension despite fluids, and an earlier report of a possible liver lesion, a 24-hour urine 5-HIAA collection was ordered to evaluate for carcinoid syndrome. His hospital course was further complicated by acute kidney injury, likely acute tubular necrosis secondary to severe dehydration and use of olmesartan and hydrochlorothiazide. His creatinine peaked at 3.85 mg/dL but improved with IV fluids and discontinuation of nephrotoxic medications. Urine studies showed findings consistent with intrinsic renal pathology. Renal ultrasound was unremarkable. With ongoing fluid resuscitation, his renal function steadily improved, trending down to 1.39 mg/dL. Once his kidney function stabilized, he underwent CT angiography of the abdomen and pelvis with oral and IV contrast. This study demonstrated that the previously noted enhancing focus in the right hepatic lobe represented a hemangioma, rather than a malignant lesion, alleviating initial concerns. During admission, he was also noted to have rising transaminases. AST and ALT had been normal earlier in the year but trended upward during this hospitalization, peaking at 125 and 92, respectively. These were monitored c losely, and he was counseled to avoid hepatotoxic medications. Additional findings included unintentional weight loss with constitutional symptoms concerning for systemic disease, as well as paresthesias in the right hand and foot. Workup showed mild electrolyte abnormalities, including hypomagnesemia and hypocalcemia, which were repleted. CT head was normal, and B12, folate, and TSH were obtained. His hyponatremia on admission was likely multifactorial, related to gastrointestinal losses and poor oral intake. With IV normal saline and improved nutrition, sodium normalized to 138 mmol/L. Chronic conditions were also addressed. His diabetes mellitus was managed with holding metformin during ISAAC, with glucose levels remaining stable. Hypertension management included continuation of amlodipine, while olmesartan and HCTZ were held. He was initiated on atorvastatin for hyperlipidemia once liver function allowed, given an ASCVD risk of 11.9%. His BMI was 45.4, and outpatient referral for bariatric surgery was recommended. Imaging: Echocardiogram: Normal LV size and wall thickness. Overall systolic function is normal. LVEF is 60-65%. RV is moderately dilated with normal systolic function. LA size is normal. Trileaflet AV appears mildly sclerotic without stenosis or insufficiency. Mild MV annular calcification without stenosis. Trace regurgitation. TV appears structurally normal with trace regurgitation. Normal pericardium. No effusion. CT head: NO ACUTE INTRACRANIAL ABNORMALITY SEEN. Renal ultrasound: Normal sonographic appearance of the kidneys. No hy dronephrosis. CT abdomen/pelvis IV and oral contrast: Hypervascular lesion in the right hepatic lobe measuring 2.1 cm, likely representing flash hemangioma. Region of hyperemia surrounding the gallbladder within the left medial hepatic lobe measuring approximately 5.5 cm, may represent sequela of transient hepatic attenuation differentiation. Recommend dedicated MRI abdomen with and without contrast multiphasic imaging to further characterize and continued following imaging surveillance to exclude any type of aggressive etiology. Mild left hydroureteronephrosis could be secondary to urinary tract infection, pyelonephritis, recently passed calculus. Paraumbilical hernia containing fluid measuring 4.5 x 3.4 cm Soft tissue edema/ anasarca. Small amount of ascites fluid. Anterior abdominal wall subcutaneous thickening with stranding may represent sequela of cellulitis. Laboratory Tests Test 06/01/25 04:27 06/01/25 06:59 06/01/25 12:42 06/01/25 17:01 White Blood Count 10.1 X10'3 Red Blood Count 4.23 X10'6 Hemoglobin 12.1 g/dl Hematocrit 35.3 % Mean Corpuscular Volume 83.5 FL Mean Corpuscular Hemoglobin 28.6 PG Mean Corpuscular Hemoglobin Concent 34.3 g/dL Red Cell Distribution Width 14.4 % Platelet Count 176 X10'3 Mean Platelet Volume 7.5 FL Neutrophils (%) (Auto) 25.7 % Lymphocytes (%) (Auto) 68.0 % Monocytes (%) (Auto) 5.5 % Eosinophils (%) (Auto) 0.3 % Basophils (%) (Auto) 0.5 % Neutrophils # (Auto) 2.6 X10'3 Lymphocytes # (Auto) 6.9 X10'3 Monocytes # (Auto) 0.6 X10'3 Eosinophils # (Auto) 0.0 X10'3 Basophils # (Auto) 0.0 X10'3 CBC Comment Differential Total Cells Counted 100 Neutrophils % (Manual) 39.0 % Band Neutrophils % 1.0 % Lymphocytes % (Manual) 43.0 % Monocytes % (Manual) 11.0 % Reactive Lymphocytes 6.0 % Platelet Estimate Normal Red Blood Cell Morphology Normal Basophilic Stippling Sodium Level 138 MMOL/L Potassium Level 4.0 MMOL/L Chloride Level 106 MMOL/L Carbon Dioxide Level 23.6 MMOL/L Anion Gap 8 Blood Urea Nitrogen 13 MG/DL Creatinine 1.39 MG/DL Estimated GFR/1.73 m2 53 ML/MIN BUN/Creatinine Ratio 9.4 Glucose Level 115 MG/DL Calcium Level 7.7 MG/DL Magnesium Level 1.5 MG/DL Total Bilirubin 0.6 MG/DL Aspartate Amino Transf (AST/SGOT) 92 U/L Alanine Aminotransferase (ALT/SGPT) 125 U/L Alkaline Phosphatase 57 IU/L Total Protein 5.7 G/DL Albumin 2.4 G/DL Globulin 3.3 G/DL Albumin/Globulin Ratio 0.7 Chemistry Comments Glucometer 110 mg/dl 104 mg/dl 102 mg/dl Test 06/01/25 19:49 06/01/25 21:18 06/02/25 05:16 06/02/25 06:47 Sodium Level 136 MMOL/L 137 MMOL/L Potassium Level 4.1 MMOL/L 4.1 MMOL/L Chloride Level 107 MMOL/L 107 MMOL/L Carbon Dioxide Level 26.6 MMOL/L 22.8 MMOL/L Anion Gap 2 7 Blood Urea Nitrogen 10 MG/DL 11 MG/DL Creatinine 1.58 MG/DL 1.29 MG/DL Estimated GFR/1.73 m2 46 ML/MIN 58 ML/MIN BUN/Creatinine Ratio 6.3 8.5 Glucose Level 119 MG/DL 116 MG/DL Calcium Level 7.1 MG/DL 7.5 MG/DL Albumin 2.4 G/DL 2.4 G/DL Chemistry Comments Glucometer 100 mg/dl 127 mg/dl White Blood Count 11.8 X10'3 Red Blood Count 4.19 X10'6 Hemoglobin 12.1 g/dl Hematocrit 35.7 % Mean Corpuscular Volume 85.1 FL Mean Corpuscular Hemoglobin 28.9 PG Mean Corpuscular Hemoglobin Concent 34.0 g/dL Red Cell Distribution Width 14.7 % Platelet Count 175 X10'3 Mean Platelet Volume 7.5 FL Neutrophils (%) (Auto) 27.2 % Lymphocytes (%) (Auto) 67.3 % Monocytes (%) (Auto) 4.6 % Eosinophils (%) (Auto) 0.3 % Basophils (%) (Auto) 0.6 % Neutrophils # (Auto) 3.2 X10'3 Lymphocytes # (Auto) 7.9 X10'3 Monocytes # (Auto) 0.5 X10'3 Eosinophils # (Auto) 0.0 X10'3 Basophils # (Auto) 0.1 X10'3 CBC Comment Differential Total Cells Counted 100 Neutrophils % (Manual) 26.0 % Lymphocytes % (Manual) 24.0 % Monocytes % (Manual) 3.0 % Eosinophils % (Manual) 1.0 % Reactive Lymphocytes 46.0 % Smudge Cells 2+ Platelet Estimate Normal Red Blood Cell Morphology Normal Basophilic Stippling Magnesium Level 1.4 MG/DL Total Bilirubin 0.7 MG/DL Aspartate Amino Transf (AST/SGOT) 87 U/L Alanine Aminotransferase (ALT/SGPT) 120 U/L Alkaline Phosphatase 52 IU/L Total Protein 5.8 G/DL Globulin 3.4 G/DL Albumin/Globulin Ratio 0.7 Test 06/02/25 09:45 06/02/25 11:26 Glucometer 135 mg/dl Microbiology 05/29/25 Stool WBC Smear - normal 05/29/25 Stool Culture - reduced gut blanca, no growth of other organisms 05/29/25 MRSA Screen - Final, Complete NO METHICILLIN RESISTANT S. AUREUS IS... 05/29/25 Blood Culture - Preliminary, Resulted NO GROWTH AFTER 4 DAYS Advise on discharge: - you has been provided with a CTA abdomen and pelvis results, please follow up with your PCP for further evaluation - please hydrate yourself adequately, the least 4-5 L of water daily - Mounjaro has been ineffective, hence please consult with your PCP regarding further measures for weight reduction - has a BMI greater than 35, 49.4, he will likely benefit from bariatric surgery or shifting to another class of medication - your creatinine has improved during the hospital stay, it is currently 1.29, please follow up with PCP with repeat labs in 1 week - call 911/go to the nearby ED if any emergencies *Problems/Diagnosis: (1) Unintended weight loss Status: Acute (2) Liver lesion Status: Acute (3) Acute kidney injury Status: Acute Total Time Spent on D/C: > 30 Minutes Date of Service: Jun 02, 2025 Billing Provider: RAYMOND WATKINS MD Common Visit Codes: 82664-XZF/[id number] DISCH DAY >30min WILD CHA, RES Jun 02, 2025 18:19 RAYMOND WATKINS MD Jun 05, 2025 14:12
== END 2025-06-02 15:45 | disposition home or self-care (01) | DRG 391 ==
LOC: ER 10:16 → ED HOLD 14:14 → EDBEDREQ 14:59 → SUR 3N 15:40
PROVIDERS: ADMIT Internal Medicine; ATTEND Internal Medicine
PROC: BW211ZZ Computerized Tomography (CT Scan) of Abdomen and Pelvis using Low Osmolar Contrast (ICD-10-PCS; principal; 2025-06-02)
DX: A08.39 Other viral enteritis (principal); N17.0 Acute kidney failure with tubular necrosis; N13.6 Pyonephrosis; Z68.42 Body mass index [BMI] 45.0-49.9, adult; E87.1 Hypo-osmolality and hyponatremia; R20.2 Paresthesia of skin; E11.9 Type 2 diabetes mellitus without complications; I10 Essential (primary) hypertension; E66.01 Morbid (severe) obesity due to excess calories; R74.01 Elevation of levels of liver transaminase levels; E86.0 Dehydration; D72.820 Lymphocytosis (symptomatic); D18.09 Hemangioma of other sites; E83.42 Hypomagnesemia; E83.51 Hypocalcemia; Z79.899 Other long term (current) drug therapy
CPT/HCPCS: 36415; 70450; 71045; 74177; 76770; 80048; 80053; 80061; 80305; 80320; 81003; 82103; 82272; 82570; 82607; 82948; 83036; 83605; 83735; 83880; 83930; 83935; 84100; 84133; 84300; 84443; 84484; 84540; 85007; 85025; 85651; 86704; 86705; 87040; 87045; 87046; 87081; 87207; 87324; 87340; 87449; 89055; 93005; 93306; 96361; 96365; 99285; G0378; J0696; J1644; J2470; J7030; Q9963; Q9967